=== PATIENT | male | born 1980 | race Caucasian/White ===

== ENCOUNTER 2022-03-27 10:21 | Emergency (ER) | payer OTHER ==
[~2022-03-27] VITALS: Ht 182.9 cm; Wt 97.1 kg
--- NOTE | 2022-03-27 11:54 | RAD ---
CLINICAL HISTORY: Reason: "LUMP" RIGHT TESTICLE / Spl. Instructions: / History: COMPARISON: None available. TECHNIQUE: Ultrasound images of the scrotum was performed with perea-scale and color doppler. FINDINGS: The right testis measures 4.2 x 3.4 x 2.3 cm. The left testis measures 3.5 x 4.0 x 2.0 cm. There is no intratesticular abnormality. Testicular vascularity is symmetric and within normal limit s. The right epididymis appears mildly swollen measuring 0.9 x 0.7 x 1.2 cm. There is a small varicocele the right. There is no hydrocele. IMPRESSION: Possible palpable abnormality due to a slightly swollen right epididymis or small varicocele on the r ight. No testicular abnormality. Electronically signed by: Trace Lane III, MD (03/27/2022 11:51 AM) [facility]
[2022-03-27 11:59] LABS: BACTERIA,URINE 0 /HPF (0-FEW); CLARITY,URINE CLEAR; COLOR,URINE YELLOW; GLUCOSE,URINE NEG (NEG); NITRITE,URINE NEG (NEG); RBC,URINE OCC /HPF (0-2); SQUAMOUS EPITHELIAL CELL,UR FEW /LPF; UROBILINOGEN,URINE 0.2 mg/dL (0.2 mg/dL); WBC,URINE OCC /HPF (0-4)
--- NOTE | 2022-03-27 12:05 | PHYS DOC ---
Past History Past Surgical History: Other Additional Past Surgical Histo: VASECTOMY Alcohol Use: Occasionally General Adult EDM: Chief Complaint: TESTICULAR PAIN OR INJURY HPI: HPI: Patient is a 42-year-old male presents with right-sided testicular pain. Patient states that he noticed a "lump" last night in his right testicle. Patient reports mild tenderness. Denies taking anything for pain. Denies pain with urination, denies penile discharge. No medical history. Immunizations. Review of Systems: Review of Systems: ROS At least 10 ROS systems have been reviewed and are negative except as documented in the HPI. General: Negative except as outlined in HPI above. Skin: Negative except as outlined in HPI above. HEENT: Negative except as outlined in HPI above. Neck: Negative except as outlined in HPI above. Respiratory: Negative except as outlined in HPI above.. Cardiovascular: Negative except as outlined in HPI above. Abdomen: Negative except as outlined in HPI above. : Negative except as outlined in HPI above. Back/MSK: Negative except as outlined in HPI above. Neuro: Negative except as outlined in HPI above. Psych: Negative except as outlined in HPI above. Allergies: Allergies: Allergies Coded Allergies Type Severity Reaction Last Updated Verified No Known Drug Allergies 03/27/22 No Physical Exam: PE: Constitutional: Well developed, well nourished, no acute distress, non-toxic appearance. [] HENT: bilateral external ears normal, oropharynx moist, no oral exudates, nose normal. [] Eyes: PERRLA, EOMI, conjunctiva normal, no discharge. [] Neck: Normal range of motion, no tenderness, supple, no stridor. [] Cardiovascular:Heart rate regular rhythm, no murmur [] Lungs & Thorax: Bilateral breath sounds clear to auscultation [] Abdomen/testicular: no tenderness, no masses,, right-sided testicular swelling, tenderness Skin: Warm, dry, no erythema, no rash. [] Back: No tenderness, no CVA tenderness. [] Extremities: No tenderness, no cyanosis, no clubbing, ROM intact, no edema. [] Neurologic: Alert and oriented X 3, normal motor function, normal sensory function, no focal deficits noted. [] Psychologic: Affect normal, judgement normal, mood normal. [] Current Patient Data: Vital Signs: Vital Signs Date Time Temp Pulse Resp B/P (MAP) Pulse Ox O2 Delivery O2 Flow Rate FiO2 03/27/22 10:45 98.0 66 20 148/94 (112) 98 Room Air EKG: EKG: [] Radiology/Procedures: Radiology/Procedures: [] CLINICAL HISTORY: Reason: "LUMP" RIGHT TESTICLE / Spl. Instructions: / History: COMPARISON: None available. TECHNIQUE: Ultrasound images of the scrotum was performed with perea-scale and color doppler. FINDINGS: The right testis measures 4.2 x 3.4 x 2.3 cm. The left testis measures 3.5 x 4.0 x 2.0 cm. There is no intratesticular abnormality. Testicular vascularity is symmetric and within normal limits. The right epididymis appears mildly swollen measuring 0.9 x 0.7 x 1.2 cm. There is a small varicocele the right. There is no hydrocele. IMPRESSION: Possible palpable abnormality due to a slightly swollen right epididymis or small varicocele on the right. No testicular abnormality. Electronically signed by: Trace Lane III, MD (03/27/2022 11:51 AM) [facility] Heart Score: C/O Chest Pain: No Risk Factors: Risk Factors: DM, Current or recent (<one month) smoker, HTN, HLP, family history of CAD, obesity. Risk Scores: Score 0 - 3: 2.5% MACE over next 6 weeks - Discharge Home Score 4 - 6: 20.3% MACE over next 6 weeks - Admit for Clinical Observation Score 7 - 10: 72.7% MACE over next 6 weeks - Early Invasive Strategies Course & Med Decision Making: Course & Med Decision Making Pertinent Labs and Imaging studies reviewed. (See chart for details) [] 42-year-old male presents with right-sided testicular pain along with a lump he noticed in his right testicle. Patient is reporting some mild tenderness to the area. Work-up in ER consisted of urinalysis, ultrasound. Ultrasound was negative for infection or blood. Ultrasound shows varicocele on the right testicle. No testicular abnormality seen. Discussed all results with patient. Advised patient to take ibuprofen or Tylenol for discomfort. Patient given referral for [facility]. Advised patient to call Tuesday to make a follow-up appointment. Discussed return precautions. Patient verbalized understanding of discharge instructions. Patient's appreciative and okay with discharge plan. Dragon Disclaimer: Dragon Disclaimer: This electronic medical record was generated, in whole or in part, using a voice recognition dictation system. Departure Departure: Impression: Primary Impression: Scrotal swelling Additional Impression: Varicocele Disposition: HOME / SELF CARE / HOMELESS Condition: STABLE Referrals: PCP,UNKNOWN (PCP) [facility] Patient Instructions: Scrotal Swelling Additional Instructions: You were seen in the emergency room for scrotal swelling. Ultrasound showed a varicocele. I would suggest following up with urology. If you have discomfort you can take OTC tylenol or ibuprofen. Return to ED with worsening symptoms or concerns. EMERGENCY DEPARTMENT GENERAL DISCHARGE INSTRUCTIONS Thank you for coming to [facility] (ED) today and trusting us with you care. We trust that you had a positivie experience in our Emergency Department. If you wish to speak to the department management, you may call the director at [phone]. YOUR FOLLOW UP INSTRUCTIONS ARE FOLLOWS: 1. Do you have a private Doctor? If you do not have a private doctor, please ask for a resource list of physicians or clinics that may be able to assist you with follow up care. 2. The Emergency Physician has interpreted your x-rays. The X-Ray specialist will also review them. If there is a change in the findings, you will be notified in 48 hours when at all possible. 3. A lab test or culture has been done, your results will be reviewed and you will be notified if you need a change in treatment. ADDITIONAL INSTRUCTIONS AND INFORMATION: 1. Your care today has been supervised by a physician who is specially trained in emergency care. Many problems require more than one evaluation for a complete diagnosis and treatment. We recommend that you schedule your follow up appointment as recomme nded to ensure complete treatment of you illness or injury. If you are unable to obtain follow up care and continue to have a problem, or if your condition worsens, we recommend that you return to the ED. 2. We are not able to safely determine your condition over the phone nor are we able to give sound medical advice over the phone. For these safety reasons, if you call for medical advice we will ask you to come to the ED for further evaluation. 3. If you have any questions regarding these discharge instructions please call the ED at [phone]. SAFETY INFORMATION: In the interest of safety, wellness, and injury prevention; we encourage you to wear your sealbelt, if you smoke; quite smoking, and we encourage family to use a protective helmet for bicycling and other sporting events that present an increased risk for head injury. IF YOUR SYMPTOMS WORSEN OR NEW SYMPTOMS DEVELOP, OR YOU HAVE CONCERNS ABOUT YOUR CONDITION; OR IF YOUR CONDITION WORSENS WHILE YOU ARE WAITING FOR YOUR FOLLOW UP APPOINTMENT; EITHER CONTACT YOUR PRIMARY CARE DOCTOR, THE PHYSICIAN WHOSE NAME AND NUMBER YOU WERE GIVEN, OR RETURN TO THE ED IMMEDIATELY. ANTHONY MYERS APRN March 27, 2022 12:05
[2022-03-27 12:25] VITALS: BP 141/91
== END 2022-03-27 12:30 | disposition home or self-care (01) ==
LOC: ER 10:21
DX: I86.1 Scrotal varices (principal)
CPT/HCPCS: 36415; 76870; 81001; 87491; 87591; 99284